=== PATIENT | male | born 2000 | race American Indian/Alaskan Native ===

== ENCOUNTER 2021-02-02 17:07 | Emergency (ER) | payer SELFPAY ==
[2021-02-02 17:23] VITALS: BP 123/82
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
== END 2021-02-02 20:45 | disposition left against medical advice (07) ==
LOC: ED 17:07
DX: Z00.8 Encounter for other general examination (principal); Z53.21 Procedure and treatment not carried out due to patient leaving prior to being seen by health care provider